=== PATIENT | female | born 1955 | race Caucasian/White ===

== ENCOUNTER 2023-10-09 13:31 | Observation (INO) | payer MEDICARE, OTHER ==
[2023-10-09 14:11] LABS: BASOPHILS ABSOLUTE AUTO 0.06 K/uL (0.00-0.10); BASOPHILS PERCENT AUTO 0.6 % (0.1-1.3); EOSINOPHILS ABSOLUTE AUTO 0.04 K/uL (0.00-0.40); EOSINOPHILS PERCENT AUTO 0.4 % (0.0-5.4); HEMATOCRIT 42.4 % (34.3-46.0); HEMOGLOBIN 14.7 g/dL (11.2-15.5); IMMATURE GRAN ABSOLUTE AUTO 0.02 K/uL (0.00-0.23); IMMATURE GRAN PERCENT AUTO 0.2 % (0.0-0.7); LYMPHOCYTES ABSOLUTE AUTO 2.47 K/uL (0.8-3.3); LYMPHOCYTES PERCENT AUTO 23.9 % (11.4-47.7); MEAN CORPUSCULAR HEMOGLOBIN 28.3 pg (31.6-35.5); MEAN CORPUSCULAR HGB CONC 34.7 g/dL (31.6-35.5); MEAN CORPUSCULAR VOLUME 81.7 fL (81.4-99.0); MONOCYTES ABSOLUTE AUTO 1.28 K/uL (0.20-0.90); MONOCYTES PERCENT AUTO 12.4 % (3.3-12.6); NEUTROPHILS ABSOLUTE AUTO 6.47 K/uL (1.0-7.6); NEUTROPHILS PERCENT AUTO 62.5 % (40.0-78.1); PLATELET COUNT,PLT 337 K/uL (130-375); RED BLOOD CELL COUNT 5.19 M/uL (3.77-5.24); WHITE BLOOD CELL COUNT,WBC 10.3 K/uL (3.2-11.0)
[2023-10-09 14:16] LABS: INR 2.2; PROTHROMBIN TIME 21.8 sec (9.2-10.6)
[2023-10-09 14:20] LABS: A/G RATIO 1.1 (1.2-2.2); ALANINE AMINOTRANSFERASE,ALT 35 U/L (12-78); ALBUMIN 4.3 g/dL (3.4-5.0); ALKALINE PHOSPHATASE 80 U/L (46-116); ASPARTATE AMNIOTRANSFERASE,AST 23 U/L (15-37); BILIRUBIN TOTAL 0.7 mg/dL (0.2-1.0); BLOOD UREA NITROGEN,BUN 11 mg/dL (7-18); CALCIUM 10.1 mg/dL (8.5-10.1); CARBON DIOXIDE,CO2 27 mmol/L (21-32); CHLORIDE,CL 100 mmol/L (100-108); CREATININE 0.8 mg/dL (0.6-1.0); EST CRCL DRUG DOSING (CG) 57.31 mL/min; ESTIMATED GFR 80 mL/min (>60); GLUCOSE RANDOM 110 mg/dL (74-106); POTASSIUM,K 3.8 mmol/L (3.6-5.2); PROTEIN TOTAL,TP 8.1 g/dL (6.4-8.2); SODIUM,NA 139 mmol/L (140-148)
[2023-10-09 14:21] LABS: ANION GAP 15.8 mmol/L (5.0-14.0)
[2023-10-09] MEDS: Iopamidol 755 Mg/ML 100 ML Bottle IV SCH (15:02)
[2023-10-09] MEDS: Sodium Chloride 0.9% 100 ML IV SCH (15:02)
[2023-10-09] MEDS: Sodium Chloride 0.9% 10 ML Syringe FLUSH PRN (15:02)
[2023-10-09] MEDS ORDERED: Acetaminophen 325 MG Tab PO PRN (19:52)
[2023-10-09] MEDS ORDERED: Warfarin 5 MG Tab PO SCH (19:52)
[2023-10-09] MEDS ORDERED: Ondansetron 4 MG/2 ML SDV IV PRN (19:52)
[2023-10-09] MEDS ORDERED: Ondansetron 4 MG Tab.DIS PO PRN (19:52)
[2023-10-09] MEDS ORDERED: Melatonin 3 MG Tab PO PRN (19:52)
[2023-10-09] MEDS: Warfarin** 1 MG TABLET PO ONE (20:02)
[2023-10-09] MEDS: Warfarin** 1 MG TABLET ONE (20:06)
[2023-10-10 06:09] LABS: HEMATOCRIT 37.7 % (34.3-46.0); HEMOGLOBIN 13.1 g/dL (11.2-15.5); MEAN CORPUSCULAR HEMOGLOBIN 28.4 pg (31.6-35.5); MEAN CORPUSCULAR HGB CONC 34.7 g/dL (31.6-35.5); MEAN CORPUSCULAR VOLUME 81.6 fL (81.4-99.0); RED BLOOD CELL COUNT 4.62 M/uL (3.77-5.24); WHITE BLOOD CELL COUNT,WBC 6.6 K/uL (3.2-11.0)
[2023-10-10 06:22] LABS: INR 2.2; PROTHROMBIN TIME 21.8 sec (9.2-10.6)
[2023-10-10 06:27] LABS: CALCIUM 9.1 mg/dL (8.5-10.1); CREATININE 0.8 mg/dL (0.6-1.0); EST CRCL DRUG DOSING (CG) 57.31 mL/min; POTASSIUM,K 3.8 mmol/L (3.6-5.2)
[2023-10-10 06:28] LABS: ANION GAP 11.8 mmol/L (5.0-14.0)
[2023-10-10] MEDS ORDERED: Warfarin Sliding Scale PO SCH (09:00)
[2023-10-10] MEDS ORDERED: Pantoprazole 40 MG Tab.CR PO SCH (09:00)
[2023-10-10] MEDS ORDERED: amLODIPine 5 MG Tab PO SCH (09:00)
[2023-10-10] MEDS ORDERED: Aspirin 81 MG Tab.Chew PO SCH (09:00)
[2023-10-10] MEDS ORDERED: Metoprolol Succinate 50 MG Tab.ER PO SCH (09:00)
[2023-10-10] MEDS ORDERED: atorvaSTATin 20 MG Tab PO SCH (17:00)
== END 2023-10-10 10:30 | disposition home or self-care (01) ==
LOC: JP.ED 13:31 → JP.MS 19:16
PROVIDERS: ADMIT Registered Nurse; ATTEND Hospitalist
DX: G45.9 Transient cerebral ischemic attack, unspecified (principal); R29.810 Facial weakness; I10 Essential (primary) hypertension; I35.0 Nonrheumatic aortic (valve) stenosis; E78.00 Pure hypercholesterolemia, unspecified; R47.9 Unspecified speech disturbances; Z79.01 Long term (current) use of anticoagulants; Z95.2 Presence of prosthetic heart valve; Z79.82 Long term (current) use of aspirin; Z79.899 Other long term (current) drug therapy
CPT/HCPCS: 36415; 70450; 70496; 70498; 80048; 80053; 80061; 82947; 85025; 85027; 85610; 93005; 99222; 99238; 99285; A9270; G0378; J3490; Q9967; 93010; 99283